=== PATIENT | female | born 1980 | race Caucasian/White ===

== ENCOUNTER 2020-01-29 04:56 | Day surgery (SDC) | payer OTHER ==
--- OUTSIDE RECORDS SUMMARY | 2020-01-23 08:02 | XMS ---
:1980 [facility] Organization [facility] Care Team Providers Name Role Phone Menla, Eric Unavailable Unavailable Menla, Eric Unavailable Unavailable Menla, Eric Unavailable Unavailable Menla, Eric Unavailable Unavailable Menla, Eric Unavailable Unavailable Menla, Eric Unavailable Unavailable Amarga, Rebecca Unavailable Unavailable Amarga, Rebecca Unavailable Unavailable ED STAFF PHYSICIAN, STAFF Unavailable Unavailable ED STAFF PHYSICIAN Unavailable Unavailable Coon, Trinidad Unavailable Unavailable Coon, Trinidad Unavailable Unavailable Coon, Trinidad Unavailable Unavailable Coon, Trinidad Unavailable Unavailable Coon, Trinidad Unavailable Unavailable Coon, Trinidad Unavailable Unavailable AurCarlos sam DPM Unavailable Unavailable AurJuan sam DPM Unavailable Unavailable AuriccJuan smith DPM Unavailable Unavailable MENLA ERIC Unavailable Unavailable PRZETON WELLSUTA Unavailable Unavailable VARGAS Unavailable Unavailable Re-disclosure Warning The records that you are about to access may contain information from federally- assisted alcohol or drug abuse programs. If such information is present, then the following federally mandated warning applies: This information has been disclosed to you from records protected by federal confidentiality rules (42 CFR part 2). The federal rules prohibit you from making any further disclosure of this information unless further disclosure is expressly permitted by the written consent of the person to whom it pertains or as otherwise permitted by 42 CFR part 2. A general authorization for the release of medical or other information is NOT sufficient for this purpose. The Federal rules restrict any use of the information to criminally investigate or prosecute any alcohol or drug abuse patient.The records that you are about to access may contain highly sensitive health information, the redisclosure of which is protected by Article 27-F of the [facility] Public Health law. If you continue you may haveaccess to information: Regarding HIV / AIDS; Provided by facilities licensed or operated by the [facility] Office of Mental Health; or Provided by the [facility] Office for People With Developmental Disabilities. If such information is present, then the following [facility] mandated warning applies: This information has been disclosed to you from confidential records which are protected by state law. State law prohibits you from making any further disclosure of this information without the specific written consent of the person to whom it pertains, or as otherwise permitted by law. Any unauthorized further disclosure in violation of state law may result in a fine or custodial sentence or both. A general authorization for the release of medical or other information is NOT sufficient authorization for further disclosure. Encounters Encounter Providers Location Date Indications Data Source(s ) Attender: [facility] 12/05/2019 [facility] (S aint Menla 03:44:00 PM [facility] Medic al EDT - Center) 12/05/2019 03:44:00 PM EDT Attender: Rebecca [facility] 10/04/2019 NEXTGEN (Sa int Amarga 10:41:00 AM [facility] Medic al EDT - Center) 10/04/2019 10:41:00 AM EDT Outpatient Attender: LEATHA Burnham 09/14/2019 [facility] MOLINAAAdmitter: 04:13:00 PM Medical C enter LEATHA EDT MEJIAReferrer: LEATHA VARGAS OutpatientOFFICE/O Attender: Eric [address] [place] [address] 09/14/2019 NE XTGEN ([facility] VISIT, Menla 04:13:00 PM [facility] Medical EST EDT - Center) 09/14/2019 04:13:00 PM EDT Outpatient 09/14/2019 [facility] 10:28:00 AM Medical Cente r EDT Outpatient 09/14/2019 [facility] 12:00:00 AM Medical Cente r EDT Attender: Carlos [facility] 09/11/2019 NEXTGEN (S aint Auricchio DPM 10:27:00 AM [facility] EDT - [place]) 09/11/2019 10:27:00 AM EDT Emergency Attender: ED H 09/06/2019 [facility] STAFF 07:16:00 PM Medical Liliana jiménez PHYSICIANAttender EDT - : STAFF ED STAFF 09/06/2019 PHYSICIANAdmitter 10:49:00 PM : ED STAFF EDT PHYSICIAN Patient discharged. Outpatient Attender: LEATHA Burnham [facility]06[facility]2019 [facility] LE[facility] 10:12:00 AM [facility] OutpatientOFFICE/OUT Attender: Eric [facility]:12[facility]00 AM EDT ( [facility] 09/06/2019 [facility] 10:12:00 AM T [facility]) Outpatient 09/06/2019 [facility] 10:10:00 AM EDT [facility] Outpatient 09/06/2019 [facility] 12:00:00 AM EDT [facility] Attender: Trinidad Costello 08/10/2019 SALTY SIDDIQI [facility] 11:06:00 AM EDT ([facility] 08/10/2019 [facility] 11:06:00 AM EDT [facility]) Outpatient 07/20/2019 [facility] 04:09:00 PM EDT [facility] Outpatient Attender: LEATHA Burnham 07/20/2019 [facility]il[facility]: LEATHA 09:02:00 AM EDT [facility] OutpatientOFFICE/OUT Attender: [facility]20[facility] 09:02:00 AM EDT ( [facility] 07/20/2019 [facility] 09:02:00 AM [facility]) Outpatient 07/20/2019 [facility] 12:00:00 AM EDT [facility] Outpatient Attender: ERIC Burnham 07/06/2019 Che LIdmitter: ERIC 03:39:00 PM EDT [facility] DENA Monroyferrer: Medic alma REYES [place] OutpatientWell Attender: [facility] 07/06/2019 NEXTGEN Visit, 03:39:00 PM EDT ([facility] Est,18-39years - 07/06/2019 Brad s 03:39:00 PM [facility]) Outpatient 07/06/2019 [facility] 11:06:00 AM EDT [facility] Outpatient 07/06/2019 [facility] 12:00:00 AM EDT [facility] Outpatient Attender: ERIC FERNANDES 06/20/2019 Che LIdmitter: ERIC 11:13:00 AM [facility]ir[facility] Medic al [facility] [place] OutpatientOFFICE/OUT Attender: [facility]20[facility] 11:13:00 AM EDT ( [facility] 06/20/2019 [facility] 11:13:00 AM [facility]) Outpatient 06/20/2019 [facility] 11:11:00 AM EDT [facility] Outpatient 06/20/2019 [facility] 12:00:00 AM [facility] Outpatient Attender: LEATHA 05/17/2019 [facility] LEATHA 09:29:00 AM [facility] Nehemiahrer: LEATHA [facility] OutpatientOFFICE/OUT Attender: Eric [facility] 05/17/2019 [facility] PATIENT VISIT, EST 09:29:00 AM EST ( [facility] 05/17/2019 [facility] 09:29:00 AM [facility]) Outpatient 05/17/2019 [facility] 09:28:00 AM [facility] Outpatient 05/17/2019 [facility] 12:00:00 AM [facility] Attender: Eric [facility] 02/21/2019 NEXT GEN 09:37:00 AM EST ([facility] 02/21/2019 [facility] 09:37:00 AM [facility]) Attender: Eric Fernandes [facility] 12/16/2018 [facility] 02:36:00 PM EDT ([facility] 12/16/2018 [facility] 02:36:00 PM [facility]) Outpatient Attender: DHAVAL Burnham 11/17/2018 [facility] 09:22:00 AM EDT [facility] DANUTAAdmitter: [facility] DANUTAReferrer: ERIC REYES Immunizations Vaccine Date Status Description Data Source(s) New in 2011. IIV4 01/22/2019 completed Influenza, Injectable, NEXTGEN ([facility] 12:00:00 AM EDT Quadrivalent [facility]) Source: Other Provider Medications Medication Brand Start Product Dose Route Administrative Pharmacy anm Indications Reaction Description Data Name Date Form Instructions Instructions Source(s) Naproxen naprox ORAL active take 1 NEX TGEN 500 MG Oral en 500 2019 {tabl tablet by ([facility] Tablet mg 12:00: et} oral route 2 Hans eph[facility] naproxen tablet 00 AM times every M edical 500 mg EDT day with Center) tablet food gabapentin gabape ORAL active take 1 N EXTGEN 100 MG Oral ntin 2019 {caps capsule by ( [facility] Capsule 100 mg 12:00: ule} oral route 2 Beny gabapentin capsul 00 AM times every Medical 100 mg e EDT day Center) capsule Erythromyci erythr ORAL complet take 1 NEXTGEN n 500 MG omycin 2019 {tbl} ed tablet by (Sa int Oral Tablet 500 mg 12:00: oral rout e Beny erythromyci tablet 00 AM every 6 Me dical n 500 mg EDT hours Center) tablet Flonase flutic NASAL active fluticason e NEXTGEN Allergy asone 2019 {spra propionate (Rell nt Relief 50 propio 12:00: y} 0.05 Brad s mcg/actuati alesha 00 AM MG/ACTUAT Me dical on nasal 0.05 EDT Metered Dose [address]) spray,suspe MG/ACT Nasal [place] nsion UAT [Flonase] Metere d Dose Nasal [place] Loratadine lorata ORAL active take 1 N EXTGEN 10 MG Oral dine 2019 {tabl tablet by (Sa int Tablet 10 mg 12:00: et} oral route Raul phs loratadine tablet 00 AM every day M edical 10 mg EDT Center) tablet Loratadine lorata ORAL complet take 1 NEXTGEN 10 MG Oral dine 2018 {tbl} ed tablet by (Sa int Tablet 10 mg 12:00: oral route Raul phs loratadine tablet 00 AM every day M edical 10 mg EDT Center) tablet Ibuprofen ibupro ORAL complet take 1 N EXTGEN 600 MG Oral fen 2017 {tbl} ed tablet by (S aint Tablet 600 mg 12:00: oral route 3 [facility] ibuprofen tablet 00 AM times every Medical 600 mg EST day with Center) tablet food Erythromyci erythr .00 ORAL complet take 1 NEXTGEN n 500 MG omycin 2016 {tbl} ed tablet by (Sa int Oral Tablet 500 mg 12:00: oral rout e Beny erythromyci tablet 00 AM every 6 Me dical n 500 mg EST hours Center) tablet Insurance Providers Payer name Policy type Policy ID Covered Covered libertarian's Policy P kasie / Coverage libertarian ID relationship to Liu Inf ormation type liu HERBERT [id number] SP [id number] ESSENTIAL PLAN 1 2 O HERBERT O [id number] 01 [id number] 600 ESSENTIALS-CO MMERCIAL W [id number] Problems, Conditions, and Diagnoses Code Display Name Description Problem Type Effective Data Dates Source(s) Z71.82 Exercise counseling EXERCISE COUNSELING Diagnosis 020 [facility] 04:13:00 PM [facility] Z71.3 Dietary counseling DIETARY COUNSELING Diagnosis 0 [facility] and surveillance AND SURVEILLANCE 04:13:00 PM [facility] Z68.30 Body mass index BODY MASS INDEX Diagnosis 09/14/2019 Che t (BMI) 30.0-30.9, (BMI) 30.0-30.9, 04:13:00 PM [facility] adult ADULT [facility] M54.30 Sciatica, SCIATICA, Diagnosis 09/14/2019 unspecified side UNSPECIFIED SIDE 04:13:00 PM [facility] Y99.9 Unspecified external UNSPECIFIED EXTERNAL Diagnosis 09/05 cause status CAUSE STATUS 07:16:00 PM [facility] Y92.[address] U[address]IED [address] OR Diagnosis 09/05 not applicable NOT APPLICABLE 07:16:00 PM Jairon [facility] Y93.9 Activity, ACTIVITY, Diagnosis 09/06/2019 unspecified UNSPECIFIED 07:16:00 PM [facility] X58.XXXA Exposure to other EXPOSURE TO OTHER Diagnosis 09/06/2019 specified factors, SPECIFIED FACTORS, 07:16:00 PM [facility] initial encounter INITIAL ENCOUNTER EDT Medical Center M62.830 Muscle spasm of back MUSCLE SPASM OF BACK Diagnosis 09/05 [facility] 07:16:00 PM [facility] S39.012A Strain of muscle, STRAIN OF MUSCLE, Diagnosis 09/06/2019 fascia and tendon of FASCIA AND TENDON OF 07:16 :00 PM [facility] lower back, initial LOWER BACK, INIT EDT Medical encounter Center M54.9 Dorsalgia, DORSALGIA, Diagnosis 09/06/2019 unspecified UNSPECIFIED 07:16:00 PM [facility] J32.9 Chronic sinusitis, CHRONIC SINUSITIS, Diagnosis 0 [facility] unspecified UNSPECIFIED 09:02:00 AM [facility] Z11.4 Encounter for ENCOUNTER FOR Diagnosis 07/06/2019 screening for human SCREENING FOR HUMAN 03:39:0 0 PM [facility] immunodeficiency IMMUNODEFICIENCY EDT Or dical virus [HIV] VIRUS Center Z51.89 Encounter for other ENCOUNTER FOR OTHER Diagnosis specified aftercare SPECIFIED AFTERCARE 03:39:0 0 PM [facility] Z00.00 Encounter for ENCNTR FOR GENERAL Diagnosis 07/06/2019 Rell nt general adult ADULT MEDICAL EXAM 03:39:00 PM [facility] medical examination W/O ABNORMAL EDT Med ical without abnormal FINDINGS Center findings M79.675 Pain in left toe(s) PAIN IN LEFT TOE(S) Diagnosis 020 [facility] 11:13:00 AM [facility] Z68.29 Body mass index BODY MASS INDEX Diagnosis 05/17/2019 Che t (BMI) 29.0-29.9, (BMI) 29.0-29.9, 09:29:00 AM [facility] adult ADULT [facility] G56.02 Carpal tunnel CARPAL TUNNEL Diagnosis 05/17/2019 syndrome, left upper SYNDROME, LEFT UPPER 09:29 :00 AM [facility] limb LIMB [facility] Surgeries/Procedures Procedure Description Date Indications Data Source(s) OFFICE/OUTPATIENT VISIT, 09/14/2019 NEX TGEN ([facility] EST 12:00:00 AM EDT [facility] - 09/14/2019 Center) 12:00:00 AM EDT OFFICE/OUTPATIENT VISIT, 09/06/2019 NEX TGEN ([facility] EST 12:00:00 AM EDT [facility] - 09/06/2019 Center) 12:00:00 AM EDT OFFICE/OUTPATIENT VISIT, 07/20/2019 NEX TGEN ([facility] EST 12:00:00 AM EDT [facility] - 07/20/2019 Center) 12:00:00 AM EDT [facility] Est,18-39years 12:00:00 AM EDT [facility] dical - 07/06/2019 [place]) 12:00:00 AM EDT ROUTINE VENIPUNCTURE 07/06/2019 NEXTGEN ([facility] 12:00:00 AM EDT [facility] - 07/06/2019 [place]) 12:00:00 AM EDT OFFICE/OUTPATIENT VISIT, 06/20/2019 NEX TGEN ([facility] EST 12:00:00 AM EDT [facility] - 06/20/2019 [place]) 12:00:00 AM EDT OFFICE/OUTPATIENT VISIT, 05/17/2019 NEX TGEN ([facility] EST 12:00:00 AM EST [facility] - 05/17/2019 [place]) 12:00:00 AM EST Results ID Date Data Source Liver 07/06/2019 05:20:00 PM EDT [facility] Profile.[id number] Name Value Range Interpretation Description Data Sup porting Code Source(s) Document(s ) Aspartate 14-36 <content [facility] aminotransferase styleCode="Bold"> Jairon hs [Enzymatic Aspartate Medical activity/volume] Aminotransferase Center in Serum or Plasma (AST) </content>23 IU/L<content styleCode="Italic s"> (14-36 IU/L)</content> Alkaline 38-126 <content [facility] phosphatase styleCode="Bold"> Beny [Enzymatic Alkaline Medical activity/volume] Phosphatase (ALP) Cente r in Serum or Plasma </content>67 IU/L<content styleCode="Italic s"> (38-126 IU/L)</content> Alanine 7-30 <content [facility] aminotransferase styleCode="Bold"> Jairon hs [Enzymatic Alanine Medical activity/volume] Aminotransferase Center in Serum or Plasma (ALT) </content>17 IU/L<content styleCode="Italic s"> (7-30 IU/L)</content> Albumin 3.5-5.0 <content [facility] [Mass/volume] in styleCode="Bold"> Jairon hs Serum or Plasma Albumin Medical </content>4.5 Center G/DL<content styleCode="Italic s"> (3.5-5.0 G/DL)</content> Bilirubin.total 0.2-1.3 Below low <content [facility] [Mass/volume] in normal styleCode="Bold"> Jairon hs Serum or Plasma Bilirubin Total Medical </content>< 0.2 Center MG/DL L<content styleCode="Italic s"> (0.2-1.3 MG/DL)</content> ID Date Data Source LIPID.[id number] 07/06/2019 05:20:00 PM EDT [facility] Name Value Range Interpretation Description Data Sup porting Code Source(s) Document(s ) UNK < 100 <content [facility] styleCode="Du Beny d">LDL-Cholest [facility] </content>90 MG/DL<content styleCode="Sofia lics"> (< 100 MG/DL)</conten t> Triglyceride < 150 Above high normal <content [facility] [Mass/volume] in styleCode="Du Beny Serum or Plasma d">Triglycerid [facility] Center </content>151 MG/DL H<content styleCode="Sofia lics"> (< 150 MG/DL)</conten t> UNK > 60 Below low normal <content [facility] styleCode="Du Beny d">HDL- Medical Cholesterol Center </content>41 MG/DL L<content styleCode="Sofia lics"> (> 60 MG/DL)</conten t> Cholesterol -<200 <content [facility] [Mass/volume] in styleCode="Du Beny Serum or Plasma d">Cholesterol Medical </content>161 Center MG/DL<content styleCode="Sofia lics"> (-<200 MG/DL)</conten t> ID Date Data Source Hormones.[id number] 07/06/2019 05:20:00 PM EDT Che [facility] Name Value Range Interpretation Description Data Sup porting Code Source(s) Document(s ) Thyrotropin 0.465-4. <content [facility] [Units/volume] 68 styleCode="Du Beny in Serum or d">Thyroid Medical Plasma by Stimulating Center Detection Hormone limit <= 0.05 </content>1.05 mIU/L MIU/L<content styleCode="Sofia lics"> (0.465-4.68 MIU/L)</conten t> ID Date Data Source HematologyRou.[id number] 07/06/2019 05:20:00 PM EDT [facility] 0400 Name Value Range Interpretation Description Data Sup porting Code Source(s) Document(s ) Leukocytes 4.4-11.0 <content [facility] [#/volume] in styleCode="Bold Beny Blood by ">White Blood Medical Automated count Cell Count Center </content>8.92 KCUMM<content styleCode="Ital ics"> (4.4-11.0 KCUMM)</content > Hematocrit 36.0-46. <content [facility] [Volume 0 styleCode="Bold Beny Fraction] of ">Hematocrit Medical Blood by </content>39.7 Center Automated count %<content styleCode="Ital ics"> (36.0-46.0 %)</content> Erythrocyte mean 80.0-100 <content [facility] corpuscular .0 styleCode="Bold Beny volume [Entitic ">Mean Medical volume] by Corpuscular Center Automated count Volume </content>95.2 FL<content styleCode="Ital ics"> (80.0-100.0 FL)</content> Erythrocytes 4.0-5.1 <content [facility] [#/volume] in styleCode="Bold Beny Blood by ">Red Blood Medical Automated count Cell Count Center </content>4.17 MCUMM<content styleCode="Ital ics"> (4.0-5.1 MCUMM)</content > Hemoglobin 12.3-16. <content [facility] [Mass/volume] in 0 styleCode="Bold Beny Blood ">Hemoglobin Medical </content>13.2 Center G/DL<content styleCode="Ital ics"> (12.3-16.0 G/DL)</content> Erythrocyte mean 32.0-37. <content [facility] corpuscular 0 styleCode="Bold Beny hemoglobin ">Mean Corpus. Medical concentration Hgb Center [Mass/volume] by Concentration Automated count (MCHC) </content>33.2 G/DL<content styleCode="Ital ics"> (32.0-37.0 G/DL)</content> Platelet mean 8.0-11.0 Above high <content [facility] volume [Entitic normal styleCode="Bold Beny volume] in Blood ">Mean Platelet Medical by Automated Volume Center count </content>13.0 FL H<content styleCode="Ital ics"> (8.0-11.0 FL)</content> Platelets 130-400 <content [facility] [#/volume] in styleCode="Bold Beny Blood by ">Platelet Medical Automated count Count Center </content>216 KCUMM<content styleCode="Ital ics"> (130-400 KCUMM)</content > Erythrocyte mean 26.0-34. <content [facility] corpuscular 0 styleCode="Bold Beny hemoglobin ">Mean Medical [Entitic mass] Corposcular Center by Automated Hemoglobin count </content>31.7 PG<content styleCode="Ital ics"> (26.0-34.0 PG)</content> Erythrocyte 11.5-14. <content [facility] distribution 5 styleCode="Bold Beny width [Ratio] by ">Red Cell Medical Automated count Distribution Center Width </content>12.2 %<content styleCode="Ital ics"> (11.5-14.5 %)</content> UNK 1.6-4.9 Above high <content [facility] normal styleCode="Bold Beny ">Immature Medical Platelet Center Fraction </content>13.8 % H<content styleCode="Ital ics"> (1.6-4.9 %)</content> UNK 0.0 <content [facility] styleCode="Bold Beny ">Nucleated Red Medical Blood Cell Center Count </content>0.00 KCUMM<content styleCode="Ital ics"> (0.0 KCUMM)</content > UNK 0 <content [facility] styleCode="Bold Beny ">Nucleated Red Medical Blood Cell Center </content>0.0 /100<content styleCode="Ital ics"> (0 /100)</content> ID Date Data Source GFR(Creatinine).[id number] 07/06/2019 05:20:00 PM EDT [facility] 0-0400 Name Value Range Interpretation Code Description Data Perlita rce(s) Supporting Document(s ) UNK > 60 <content [facility] styleCode="Bold"> Medical Cent er EGFR </content>86 GFR<content styleCode="Italic s"> (> 60 GFR)</content> ID Date Data Source CHMROUTINECCDA.[id number] 07/06/2019 05:20:00 PM EDT [facility] -0400 Name Value Range Interpretation Description Data Sup porting Code Source(s) Document(s ) UNK >= 1.0 <content [facility] styleCode="Bold Medical ">AG Ratio Center </content>1.4 <content styleCode="Ital ics"> (>= 1.0 )</content> UNK 2.3-3.5 <content [facility] styleCode="Bold Medical ">Globulin Center </content>3.2 G/DL<content styleCode="Ital ics"> (2.3-3.5 G/DL)</content> Protein 6.3-8.2 <content [facility] [Mass/volum styleCode="Bold Medical e] in Serum ">Total Protein Center or Plasma </content>7.7 G/DL<content styleCode="Ital ics"> (6.3-8.2 G/DL)</content> UNK 4.2-5.8 <content [facility] styleCode="Bold Medical ">Hemoglobin Center A1C </content>5.2 %<content styleCode="Ital ics"> (4.2-5.8 %)</content> ID Date Data Source [id number] 07/06/2019 05:20:00 PM EDT [facility] Name Value Range Interpretation Description Data Sup porting Code Source(s) Document(s ) Sodium 137-145 <content [facility] [Moles/volume] in styleCode="Bold"> Raul phs Serum or Plasma Sodium Medical </content>138 Center MEQ/L<content styleCode="Italic s"> (137-145 MEQ/L)</content> Potassium 3.5-5.3 <content [facility] [Moles/volume] in styleCode="Bold"> Raul phs Serum or Plasma Potassium Medical </content>3.9 Center MEQ/L<content styleCode="Italic s"> (3.5-5.3 MEQ/L)</content> Chloride 98-107 <content [facility] [Moles/volume] in styleCode="Bold"> Raul phs Serum or Plasma Chloride Medical </content>102 Center MEQ/L<content styleCode="Italic s"> (98-107 MEQ/L)</content> Carbon dioxide, 22-30 <content [facility] total styleCode="Bold"> Beny [Moles/volume] in Carbon Dioxide Medical Serum or Plasma </content>26 Center MEQ/L<content styleCode="Italic s"> (22-30 MEQ/L)</content> UNK 7-17 <content [facility] styleCode="Bold"> Beny BUN </content>15 Medical MG/DL<content Center styleCode="Italic s"> (7-17 MG/DL)</content> Calcium 8.4-10. <content [facility] [Mass/volume] in 2 styleCode="Bold"> Jairon hs Serum or Plasma Calcium Medical </content>9.8 Center MG/DL<content styleCode="Italic s"> (8.4-10.2 MG/DL)</content> UNK > 60 <content [facility] styleCode="Bold"> Beny EGFR </content>86 Medical GFR<content Center styleCode="Italic s"> (> 60 GFR)</content> Glucose 74-106 <content [facility] [Mass/volume] in styleCode="Bold"> Jairon hs Serum or Plasma Glucose Medical </content>106 Center MG/DL<content styleCode="Italic s"> (74-106 MG/DL)</content> Aspartate 14-36 <content [facility] aminotransferase styleCode="Bold"> Jairon hs [Enzymatic Aspartate Medical activity/volume] Aminotransferase Center in Serum or Plasma (AST) </content>23 IU/L<content styleCode="Italic s"> (14-36 IU/L)</content> Creatinine 0.5-1.3 <content [facility] [Mass/volume] in styleCode="Bold"> Jairon hs Serum or Plasma Creatinine Medical </content>0.8 Center MG/DL<content styleCode="Italic s"> (0.5-1.3 MG/DL)</content> Alanine 7-30 <content [facility] aminotransferase styleCode="Bold"> Jairon hs [Enzymatic Alanine Medical activity/volume] Aminotransferase Center in Serum or Plasma (ALT) </content>17 IU/L<content styleCode="Italic s"> (7-30 IU/L)</content> Alkaline 38-126 <content [facility] phosphatase styleCode="Bold"> [facility] [Enzymatic Alkaline Medical activity/volume] Phosphatase (ALP) Cente r in Serum or Plasma </content>67 IU/L<content styleCode="Italic s"> (38-126 IU/L)</content> Albumin 3.5-5.0 <content [facility] [Mass/volume] in styleCode="Bold"> Jairon hs Serum or Plasma Albumin Medical </content>4.5 Center G/DL<content styleCode="Italic s"> (3.5-5.0 G/DL)</content> Bilirubin.total 0.2-1.3 Below low <content Saint [Mass/volume] in normal styleCode="Bold"> Jairon hs Serum or Plasma Bilirubin Total Medical </content>< 0.2 Center MG/DL L<content styleCode="Italic s"> (0.2-1.3 MG/DL)</content> Procedure Social History Code Duration Value Status Description Data Source(s ) Caffeine Use 10/04/2019 completed coffee, 3 cups NEXTGEN ([facility] Details 12:00:00 AM EDT [facility]) Smoking 10/04/2019 Unknown if completed Unknown if ever NEXTGEN ( [facility] 12:00:00 AM EDT ever smoked smoked [facility]) 09/14/2019 Current completed Current NEXTGEN ([facility] 12:00:00 AM EDT non-smoker non-smoker [facility]) Smoking 09/06/2019 Denies Ever completed Denies Ever [place] [facility] 07:[facility]:00 PM EDT Smoked Smoked Medical C enter Smoking 09/06/2019 Denies Ever completed Denies Ever [facility] 07:24:00 PM EDT Smoked Smoked Medical C enter Vital Signs ID Date Data Source UNK Name Value Range Interpretation Code Description Data Source(s) Oxygen saturation 100 % 100 % NEXTGEN ([facility] in Arterial blood [facility] by Pulse oximetry Center) Body mass index 30.47 kg/m2 Overweight 30.47 kg/m2 NEXTGEN ([facility] (BMI) [Ratio] [facility]) Respiratory rate 20 /min 20 /min [facility] ([facility]) Body temperature 37.06 Jennifer 37.06 Jennifer [facility] ([facility]) Heart rate 72 /min 72 /min [facility] ([facility]) Diastolic blood 64 mm[Hg] 64 mm[Hg] [facility] ( [facility] pressure [facility]) Systolic blood 102 mm[Hg] 102 mm[Hg] [facility] (S aint [facility]) Body weight 70.760 kg 70.760 kg [facility] ([facility]) Body height 152.40 cm 152.40 cm [facility] ([facility]) Body weight 67.224551 kg 67.704633 kg [facility] Body temperature 36.520089 36.299789 Jennifer [facility] Respiratory rate 18 /min 18 /min [facility] Oxygen saturation 98 % 98 % [facility] Arterial blood [facility] by Pulse oximetry Heart rate 89 /min 89 /min [facility] Body height 151.944233 151.464819 cm [facility] Diastolic blood 76 mm[Hg] 76 mm[Hg] [facility] pressure [facility] Systolic blood 139 mm[Hg] 139 mm[Hg] [facility] Center Body mass index 28.9 kg/m2 28.9 kg/m2 [facility] (BMI) [Ratio] [facility] [address] Oxygen saturation 98 % 98 % [facility] ([facility] in Arterial blood [facility] by Pulse oximetry Center) Body mass index 30.66 kg/m2 Overweight 30.66 kg/m2 NEXTGEN ([facility] (BMI) [Ratio] [facility]) Respiratory rate 18 /min 18 /min [facility]EXTGEN ([facility]) Body temperature 36.72 Jennifer 36.72 Jennifer NEXTGEN ([facility]) Heart rate 78 /min 78 /min [facility] ([facility]) Diastolic blood 76 mm[Hg] 76 mm[Hg] [facility] Systolic blood 118 mm[Hg] 118 mm[Hg] [facility] Body weight 71.214 kg 71.214 kg [facility]) Body height 152.40 cm 152.40 cm [facility] ([facility]) Oxygen saturation 98 % 98 % NEXTGEN ([facility] in Arterial blood [facility] by Pulse oximetry Center) Body mass index 30.08 kg/m2 Overweight 30.08 kg/m2 NEXTGEN ([facility] (BMI) [Ratio] [facility]) Respiratory rate 20 /min 20 /min [facility]) Body temperature 36.39 Jennifer 36.39 Jennifer [facility]) Heart rate 82 /min 82 /min [facility] ([facility]) Diastolic blood 56 mm[Hg] 56 mm[Hg] [facility] ( [facility]) Systolic blood 107 mm[Hg] 107 mm[Hg] [facility] Body weight 69.853 kg 69.853 kg [facility]) Body height 152.40 cm 152.40 cm [facility] ([facility]) Oxygen saturation 98 % 98 % NEXTGEN ([facility] in Arterial [facility] by Pulse oximetry Center) Body mass index 30.47 kg/m2 Overweight 30.47 kg/m2 NEXTGEN ([facility] (BMI) [Ratio] [facility]) Respiratory rate 17 /min 17 /min [facility]) Body temperature 37.28 Jennifer 37.28 Jennifer [facility] ([facility]) Heart rate 83 /min 83 /min [facility] ([facility]) Diastolic blood 62 mm[Hg] 62 mm[Hg] NEXTGEN ( [facility]) Systolic blood 103 mm[Hg] 103 mm[Hg] NEXTGEN (S nt [facility]) Body weight 70.760 kg 70.760 [facility]) Body height 152.40 cm 152.40 cm [facility]) Oxygen saturation 98 % 98 % NEXTGEN ([facility] in Arterial blood [facility] by Pulse oximetry Center) Body mass index 30.27 kg/m2 Overweight 30.27 kg/m2 NEXTGEN ([facility] (BMI) [Ratio] [facility]) Respiratory rate 18 /min 18 /min [facility]) Body temperature 37.11 Jennifer 37.11 Jennifer [facility]) Heart rate 81 /min 81 /min [facility] ([facility]) Diastolic blood 69 mm[Hg] 69 mm[Hg] NEXTGEN ( [facility]) Systolic blood 114 mm[Hg] 114 mm[Hg] [facility] (S nt [facility]) Body weight 70.307 kg 70.307 kg [facility] ([facility]) Body height 152.40 cm 152.40 cm [facility] ([facility]) Oxygen saturation 96 % 96 % NEXTGEN ([facility] in Arterial [facility] by Pulse oximetry Center) Body mass index 29.65 kg/m2 Overweight 29.65 kg/m2 NEXTGEN ([facility] (BMI) [Ratio] [facility]) Respiratory rate 18 /min 18 /min [facility] ([facility]) Body temperature 36.28 Jennifer 36.28 Jennifer [facility]) Heart rate 89 /min 89 /min [facility]) Diastolic blood 69 mm[Hg] 69 mm[Hg] NEXTGEN ( [facility]) Systolic blood 133 mm[Hg] 133 mm[Hg] NEXTGEN (S nt [facility]) Body weight 68.855 kg 68.855 kg [facility] ([facility]) Body height 152.40 cm 152.40 cm [facility] ([facility]) Patient Treatment Plan of Care Planned Activity Planned Date Details Description Data Source (s) gabapentin 100 MG Oral 09/06/2019 12:00:00 NEXTGEN ([facility] Capsule [facility]) Naproxen 500 MG Oral 09/06/2019 12:00:00 [facility] ([facility]) Flonase Allergy Relief 50 07/20/2019 12:00:00 [facility] ([facility]/actuation nasal [facility] spray,suspension Center) Erythromycin 500 MG Oral 07/20/2019 12:00:00 [facility] ([facility]) Loratadine 10 MG Oral 07/06/2019 12:00:00 [facility] ([facility]) Loratadine 10 MG Oral 06/29/2018 12:00:00 [facility] ([facility]) Ibuprofen 600 MG Oral 04/27/2017 12:00:00 [facility] ([facility]) Erythromycin 500 MG Oral 06/09/2016 12:00:00 [facility] ([facility])
[~2020-01-29 04:56] MED LIST: BUPIVACAINE HCL/PF 0.5% (5MG/ML) 10 ML VIAL IJ ONE
--- OUTSIDE RECORDS SUMMARY | 2020-01-29 05:00 | XMS ---
:1980 Author Organization [facility] Care Team Providers Name Role Phone PALLI VINO K Unavailable Unavailable Menla, Eric Unavailable Unavailable Menla, Eric Unavailable Unavailable Menla, Eric Unavailable Unavailable Menla, Eric Unavailable Unavailable Menla, Eric Unavailable Unavailable Menla, Eric Unavailable Unavailable Amarga, Rebecca Unavailable Unavailable Amarga, Rebecca Unavailable Unavailable ED STAFF PHYSICIAN, STAFF Unavailable Unavailable MENLA, ERIC Unavailable Unavailable Coon, Trinidad Unavailable Unavailable Coon, Trinidad Unavailable Unavailable Coon, Trinidad Unavailable Unavailable Coon, Trinidad Unavailable Unavailable Coon, Trinidad Unavailable Unavailable Coon, Trinidad Unavailable Unavailable AuriccCarlos smith DPM Unavailable Unavailable AuricchiJuan ray DPM Unavailable Unavailable AuricchiJuan ray DPM Unavailable Unavailable TEMO PUENTES Unavailable Unavailable VARGAS Unavailable Unavailable Re-disclosure Warning [...] is protected by Article 27-F of the [facility] Public Health law. If you continue you may haveaccess to information: Regarding HIV / AIDS; Provided by facilities licensed or operated by the [facility] Office of Mental Health; or Provided by the [facility] Office for People With Developmental Disabilities. If such information is present, then the following [facility] mandated warning applies: This information has been [...] law may result in a fine or correction sentence or both. A general authorization for the release of medical or other information is NOT sufficient authorization for further disclosure. Encounters Encounter Providers Location Date Indications Data Source(s ) Attender: [facility] 12/05/2019 NEXTGEN (S aint Menla 03:44:00 PM [facility] Medic al EDT - Center) 12/05/2019 03:44:00 PM EDT Attender: Rebecca [facility] 10/04/2019 NEXTGEN (Sa int Amarga 10:41:00 AM [facility] Medic al EDT - Center) 10/04/2019 10:41:00 AM EDT Outpatient Attender: LEATHA Burnham 09/14/2019 [facility] MEJIAAdmitter: 04:13:00 PM Medical C enter LEATHA EDT MEJIAReferrer: LEATHA VARGAS OutpatientOFFICE/O Attender: Eric [address] [place] [address] 09/14/2019 NE XTGEN ([facility] VISIT, Menla 04:13:00 PM [facility] Medical EST EDT - Center) 09/14/2019 04:13:00 PM EDT Outpatient 09/14/2019 [facility] 10:28:00 AM Medical Cente r EDT Outpatient 09/14/2019 [facility] 12:00:00 AM Medical Cente r EDT Attender: Carlos [facility] 09/11/2019 NEXTGEN (S aint Auricchio DPM 10:27:00 AM [facility] EDT - [place]) 09/11/2019 10:27:00 AM EDT Emergency Attender: DOLLY Burnham 09/06/2019 [facility] Morgantender: 07:16:00 PM Medical Center STAFF ED STAFF EDT - PHYSICIANAdmitter 09/06/2019 : DOLLY Brown 10:49:00 PM EDT Patient discharged. Outpatient Attender: LEATHA Burnham [facility]06/2019 [facility] 10:12:00 AM [facility] OutpatientOFFICE/OUT Attender: [facility] 09/06/2019 [facility] PATIENT VISIT, EST 10:12:00 AM EDT ( [facility] 09/06/2019 [facility] 10:12:00 AM EDT [facility]) Outpatient 09/06/2019 [facility] 10:10:00 AM EDT [facility] Outpatient 09/06/2019 [facility] 12:00:00 AM EDT [facility] Attender: Trinidad Costello 08/10/2019 SALTY SIDDIQI [facility] 11:06:00 AM EDT ([facility] 08/10/2019 [facility] 11:06:00 AM EDT [facility]) Outpatient 07/20/2019 [facility] 04:09:00 PM EDT [facility] Outpatient Attender: LEATHA Burnham 07/20/2019 [facility] LEATHA 09:02:00 AM [facility] OutpatientOFFICE/OUT Attender: [facility]00 AM EDT ( [facility] 07/20/2019 [facility] 09:02:00 AM EDT [facility]) Outpatient 07/20/2019 [facility] 12:00:00 AM EDT [facility] Outpatient Attender: ERIC Burnham 07/06/2019 [facility] FERNANDESAdmitter: ERIC 03:39:00 PM EDT [facility] OutpatientWell Attender: [facility] 07/06/2019 NEXTGEN Visit, 03:39:00 PM EDT ([facility] Est,18-39years - 07/06/2019 Brad s 03:39:00 PM [facility]) Outpatient 07/06/2019 [facility] 11:06:00 AM EDT [facility] Outpatient 07/06/2019 [facility] 12:00:00 AM EDT [facility] Outpatient Attender: ERIC Burnham 06/20/2019 [facility] IANAdmitter: ERIC 11:13:00 AM EDT [facility] ERIC [facility] OutpatientOFFICE/OUT Attender: [facility] 06/20/2019 NEXTGEN PATIENT VISIT, EST 11:13:00 AM EDT ( [facility] 06/20/2019 [facility] 11:13:00 AM [facility]) Outpatient 06/20/2019 [facility] 11:11:00 AM EDT [facility] Outpatient 06/20/2019 [facility] 12:00:00 AM EDT [facility] Outpatient Attender: LEATHA Burnham 05/17/2019 [facility] LEATHA 09:29:00 AM [facility] OutpatientOFFICE/OUT Attender: [facility] 05/17/2019 [facility] PATIENT VISIT, EST 09:29:00 AM EST ( [facility] 05/17/2019 [facility] 09:29:00 AM [facility]) Outpatient 05/17/2019 [facility] 09:28:00 AM [facility] Outpatient 05/17/2019 [facility] 12:00:00 AM [facility] Attender: [facility] 02/21/2019 NEXT GEN 09:37:00 AM EST ([facility] 02/21/2019 [facility] 09:37:00 AM [facility]) Attender: Eric Fernandes [facility] ([facility] 12/16/2018 [facility] 02:36:00 PM [facility]) Outpatient Attender: DHAVAL Burnham 11/17/2018 [facility] 09:22:00 AM EDT [facility] DANUTAReferrer: ERIC FERNANDES Immunizations Vaccine Date Status Description Data Source(s) New in 2011. IIV4 01/22/2019 completed Influenza, Injectable, NEXTGEN ([facility] 12:00:00 AM EDT Quadrivalent [facility]) Source: Other Provider Medications Medication Brand Start Product Dose Route Administrative Pharm[facility] Indications Reaction Description Data Name Date Form [...] Tablet 500 mg 12:00: oral rout e [facility] erythromyci tablet 00 AM every 6 Me dical n 500 mg EDT hours Center) tablet Flonase flutic NASAL active fluticason e NEXTGEN Allergy asone 2019 {spra propionate (Rell nt Relief 50 propio 12:00: y} 0.05 Brad s mcg/actuati alesha 00 AM MG/ACTUAT Me dical on nasal 0.05 EDT Met[address] Dose [address]) spray,suspe MG/ACT Nasal [place] nsion UAT [Flonase] Metere d Dose Nasal [place] Loratadine lorata ORAL active take 1 N [...] 600 mg 12:00: oral route 3 J osephs ibuprofen tablet 00 AM times every Medical 600 mg EST day with Center) tablet food Erythromyci erythr .00 ORAL complet take 1 NEXTGEN n 500 MG omycin 2017 {tbl} ed tablet by (Sa int Oral Tablet 500 mg 12:00: oral rout vincent Swan erythromyci tablet 00 AM every 6 Me dical n 500 mg EST hours Center) tablet Insurance Providers Payer name Policy type Policy ID Covered Covered libertarian's Policy P kasie / Coverage libertarian ID relationship to Liu Inf ormation type liu HERBERT [id number] SP [id number] 600 ESSENTIAL PLAN 1 2 O HERBERT O [id number] 600 ESSENTIALS-CO MMERCIAL W [id number] 01 [id number] Problems, Conditions, and Diagnoses Code Display Name Description Problem Type Effective Data Dates Source(s) Z71.82 Exercise counseling EXERCISE COUNSELING Diagnosis 020 [facility] 04:13:00 PM [facility] Z71.3 Dietary counseling DIETARY COUNSELING Diagnosis 0 [facility] and surveillance AND SURVEILLANCE 04:13:00 PM [facility] Z68.30 Body mass index BODY MASS INDEX Diagnosis 09/14/2019 Che t (BMI) 30.0-30.9, (BMI) 30.0-30.9, 04:13:00 PM [facility] adult ADULT [facility] M54.30 Sciatica, SCIATICA, Diagnosis 09/14/2019 unspecified side UNSPECIFIED SIDE 04:13:00 PM [facility] Y99.9 Unspecified external UNSPECIFIED EXTERNAL Diagnosis 09/05 cause status CAUSE STATUS 07:16:00 PM [facility] Y92.[address] U[address]IFIED [address] OR Diagnosis 09/05 not applicable NOT APPLICABLE 07:16:00 PM [facility] Y93.9 Activity, ACTIVITY, Diagnosis 09/06/2019 unspecified UNSPECIFIED 07:16:00 PM [facility] X58.XXXA Exposure to other EXPOSURE TO OTHER Diagnosis 09/06/2019 specified factors, SPECIFIED FACTORS, 07:16:00 PM [facility] initial encounter INITIAL ENCOUNTER [facility] M62.830 Muscle spasm of back MUSCLE SPASM OF BACK Diagnosis 09/05 [facility] 07:16:00 PM [facility] S39.012A Strain of muscle, STRAIN OF MUSCLE, Diagnosis 09/06/2019 fascia and tendon of FASCIA AND TENDON OF 07:16 :00 PM [facility] lower back, initial LOWER BACK, INIT EDT Medical encounter Center M54.9 Dorsalgia, DORSALGIA, Diagnosis 09/06/2019 unspecified UNSPECIFIED 07:16:00 PM [facility] J32.9 Chronic sinusitis, CHRONIC SINUSITIS, Diagnosis 0 [facility] unspecified UNSPECIFIED 09:02:00 AM [facility] Z11.4 Encounter for ENCOUNTER FOR Diagnosis 07/06/2019 [facility] screening for human SCREENING FOR HUMAN 03:39:0 0 PM [facility] immunodeficiency IMMUNODEFICIENCY EDT Ne dical virus [HIV] VIRUS Center Z51.89 Encounter for other ENCOUNTER FOR OTHER Diagnosis specified aftercare SPECIFIED AFTERCARE 03:39:0 0 PM [facility] Z00.00 Encounter for ENCNTR FOR GENERAL Diagnosis 07/06/2019 [facility] adult ADULT MEDICAL EXAM 03:39:00 PM [facility] medical examination W/O ABNORMAL EDT Med ical without abnormal FINDINGS Center findings M79.675 Pain in left toe(s) PAIN IN LEFT TOE(S) Diagnosis 11:13:00 AM [facility] Z68.29 Body mass index BODY MASS INDEX Diagnosis 05/17/2019 Che t (BMI) 29.0-29.9, (BMI) 29.0-29.9, 09:29:00 AM [facility] adult ADULT [facility] G56.02 Carpal tunnel CARPAL TUNNEL Diagnosis 05/17/2019 syndrome, left upper SYNDROME, LEFT UPPER 09:29 :00 AM [facility] limb LIMB [facility] Surgeries/Procedures Procedure Description Date Indications Data Source(s) OFFICE/OUTPATIENT VISIT, 09/14/2019 NEX TGEN ([facility] EST 12:00:00 AM EDT [facility] - 09/14/2019 Center) 12:00:00 AM EDT OFFICE/OUTPATIENT VISIT, 09/06/2019 NEX TGEN ([facility] EST 12:00:00 AM EDT [facility] - 09/06/2019 Center) 12:00:00 AM EDT OFFICE/OUTPATIENT VISIT, 07/20/2019 NEX TGEN ([facility] EST 12:00:00 AM EDT [facility] - 07/20/2019 Center) 12:00:00 AM EDT Well Visit, 07/06/2019 NEXTGEN ([facility] Est,18-39years 12:00:00 AM EDT [facility] dical - 07/06/2019 Center) 12:00:00 AM EDT ROUTINE VENIPUNCTURE 07/06/2019 NEXTGEN ([facility] 12:00:00 AM EDT [facility] ena - 07/06/2019 Center) 12:00:00 AM EDT OFFICE/OUTPATIENT VISIT, 06/20/2019 NEX TGEN ([facility] EST 12:00:00 AM EDT [facility] - 06/20/2019 Center) 12:00:00 AM EDT OFFICE/OUTPATIENT VISIT, 05/17/2019 NEX TGEN ([facility] EST 12:00:00 AM EST [facility] - 05/17/2019 [place]) 12:00:00 AM EST Results ID Date Data Source [id number] 01/24/2020 06:50:00 PM EDT [facility] Name Value Range Interpretation Description Data Sup porting Code Source(s) Document(s ) SARS [facility] coronavirus 2 RNA This lab was ordered by [facility] and reported by [facility]. ID Date Data Source Liver 07/06/2019 05:20:00 PM EDT [facility] Profile.[id number] Name Value Range Interpretation Description Data Sup [...] styleCode="Italic s"> (38-126 IU/L)</content> Alanine 7-30 <content [facility] aminotransferase styleCode="Bold"> Jairon hs [Enzymatic Alanine Medical [...] s"> (0.2-1.3 MG/DL)</content> ID Date Data Source LIPID.[id number] 07/06/2019 05:20:00 PM EDT [facility] Center Name Value Range Interpretation Description Data Sup porting Code Source(s) Document(s ) UNK < 100 <content [facility] styleCode="Du Beny d">LDL-Cholest [facility] Center </content>90 MG/DL<content styleCode="Sofia lics"> (< 100 MG/DL)</conten t> Triglyceride < 150 Above high normal <content [facility] [Mass/volume] in styleCode="Du Beny Serum or Plasma d">Triglycerid [facility] Center </content>151 MG/DL H<content styleCode="Sofia lics"> (< 150 MG/DL)</conten t> UNK > 60 Below low normal <content [facility] styleCode="Du Beny d">HDL- Medical Cholesterol Center </content>41 MG/DL L<content styleCode="Sofia lics"> (> 60 MG/DL)</conten t> Cholesterol -<200 <content [facility] [Mass/volume] in styleCode="Du Beny Serum or Plasma d">Cholesterol Medical </content>161 Center MG/DL<content styleCode="Sofia lics"> (-<200 MG/DL)</conten t> ID Date Data Source Hormones.[id number] 07/06/2019 05:20:00 PM EDT Che t [facility] Name Value Range Interpretation Description Data Sup porting Code Source(s) Document(s ) Thyrotropin 0.465-4. <content [facility] [Units/volume] 68 styleCode="Du Beny in Serum or d">Thyroid Medical Plasma by Stimulating Center Detection Hormone limit <= 0.05 </content>1.05 mIU/L MIU/L<content styleCode="Sofia lics"> (0.465-4.68 MIU/L)</conten t> ID Date Data Source HematologyRou.[id number] 07/06/2019 05:20:00 PM EDT [facility] nt [facility] 0400 Name Value Range Interpretation Description Data [...] ics"> (0 /100)</content> ID Date Data Source GFR(Creatinine).[id number] 07/06/2019 05:20:00 PM EDT [facility] 0-0400 Name Value Range Interpretation Code Description Data Perlita rce(s) Supporting Document(s ) UNK > 60 <content [facility] styleCode="Bold"> Medical Cent er EGFR </content>86 GFR<content styleCode="Italic s"> (> 60 GFR)</content> ID Date Data Source MROUTINECCDA.[id number] 07/06/2019 05:20:00 PM EDT [facility] -0400 Name Value Range Interpretation Description Data Sup porting Code Source(s) Document(s ) UNK >= 1.0 <content [facility] styleCode="Bold Medical ">AG Ratio Center </content>1.4 <content styleCode="Ital ics"> (>= 1.0 )</content> UNK 2.3-3.5 <content [facility] styleCode="Bold Medical ">Globulin Center </content>3.2 G/DL<content styleCode="Ital ics"> (2.3-3.5 G/DL)</content> Protein 6.3-8.2 <content [facility] [Mass/volum styleCode="Bold Medical e] in Serum ">Total Protein Center or Plasma </content>7.7 G/DL<content styleCode="Ital ics"> (6.3-8.2 G/DL)</content> UNK 4.2-5.8 <content [facility] styleCode="Bold Medical ">Hemoglobin Center A1C </content>5.2 %<content styleCode="Ital ics"> (4.2-5.8 %)</content> ID Date Data Source [facility].[id number] 07/06/2019 05:20:00 PM EDT [facility] Name Value Range Interpretation Description Data Sup [...] IU/L)</content> Alkaline 38-126 <content [facility] phosphatase styleCode="Bold"> [facility] [Enzymatic Alkaline Medical activity/volume] Phosphatase (ALP) Cente [...] ([facility] Details 12:00:00 AM EDT [facility]) Smoking 10/04/2019 Unknown if completed Unknown if ever NEXTGEN ( [facility] 12:00:00 AM EDT ever smoked smoked [facility]) 09/14/2019 Current completed Current NEXTGEN ([facility] 12:00:00 AM EDT non-smoker non-smoker [facility]) Smoking 09/06/2019 Denies Ever completed Denies Ever [place] 07:54:00 PM EDT Smoked Smoked Medical C enter Smoking 09/06/2019 Denies Ever completed Denies Ever [place] 07:24:00 PM EDT Smoked Smoked Medical C enter Vital Signs ID Date Data Source UNK Name Value Range Interpretation Code Description Data Source(s) Oxygen saturation 100 % 100 % NEXTGEN ([facility] in Arterial blood [facility] by Pulse oximetry Center) Body mass index 30.47 kg/m2 Overweight 30.47 kg/m2 NEXTGEN ([facility] (BMI) [Ratio] [facility]) Respiratory rate 20 /min 20 /min [facility] (Health system) Body temperature 37.06 Jennifer 37.06 Jennifer [facility] (Health system) Heart rate 72 /min 72 /min [facility] (Health system) Diastolic blood 64 mm[Hg] 64 mm[Hg] [facility] ( [facility] pressure [facility]) Systolic blood 102 mm[Hg] 102 mm[Hg] [facility] (S aint [facility]) Body weight 70.760 kg 70.760 kg [facility] ([facility]) Body height 152.40 cm 152.40 cm [facility] Body weight 67.308016 kg 67.186564 kg [facility] Body temperature 36.943433 36.011760 Jennifer [facility] Respiratory rate 18 /min 18 /min [facility] Oxygen saturation 98 % 98 % [facility] in Arterial [facility] by Pulse oximetry Heart rate 89 /min 89 /min [facility] Body height 151.321770 151.299379 cm [facility] Diastolic blood 76 mm[Hg] 76 mm[Hg] [facility] Center Systolic blood 139 mm[Hg] 139 mm[Hg] [facility] Body mass index 28.9 kg/m2 28.9 kg/m2 [facility] (BMI) [Ratio] Medical [address] Oxygen saturation 98 % 98 % NEXTGEN ([facility] in Arterial [facility] by Pulse oximetry Center) Body mass index 30.66 kg/m2 Overweight 30.66 kg/m2 NEXTGEN ([facility] (BMI) [Ratio] [facility]) Respiratory rate 18 /min 18 /min [facility] (Health system) Body temperature 36.72 Jennifer 36.72 Jennifer [facility] Heart rate 78 /min 78 /min [facility] Diastolic blood 76 mm[Hg] 76 mm[Hg] [facility] ( [facility]) Systolic blood 118 mm[Hg] 118 mm[Hg] [facility] ([facility]) Body weight 71.214 kg 71.214 kg [facility] ([facility]) Body height 152.40 cm 152.40 cm [facility] ([facility]) Oxygen saturation 98 % 98 % NEXTGEN ([facility] in Arterial [facility] by Pulse oximetry Center) Body mass index 30.08 kg/m2 Overweight 30.08 kg/m2 NEXTGEN ([facility] (BMI) [Ratio] [facility]) Respiratory rate 20 /min 20 /min [facility] Body temperature 36.39 Jennifer 36.39 Jennifer [facility]) Heart rate 82 /min 82 /min [facility] (Health system) Diastolic blood 56 mm[Hg] 56 mm[Hg] NEXTGEN ( [facility]) Systolic blood 107 mm[Hg] 107 mm[Hg] [facility] ([facility]) Body weight 69.853 kg 69.853 kg [facility] ([facility]) Body height 152.40 cm 152.40 cm [facility] ([facility]) Oxygen saturation 98 % 98 % NEXTGEN ([facility] in Arterial [facility] by Pulse oximetry Center) Body mass index 30.47 kg/m2 Overweight 30.47 kg/m2 NEXTGEN ([facility] (BMI) [Ratio] [facility]) Respiratory rate 17 /min 17 /min [facility] (Health system) Body temperature 37.28 Jennifer 37.28 Jennifer [facility] (Health system) Heart rate 83 /min 83 /min [facility] (Health system) Diastolic blood 62 mm[Hg] 62 mm[Hg] NEXTGEN ( [facility]) Systolic blood 103 mm[Hg] 103 mm[Hg] NEXTGEN ([facility]) Body weight 70.760 kg 70.760 [facility]) Body height 152.40 cm 152.40 cm [facility] ([facility]) Oxygen saturation 98 % 98 % NEXTGEN ([facility] in Arterial blood [facility] by Pulse oximetry Center) Body mass index 30.27 kg/m2 Overweight 30.27 kg/m2 NEXTGEN ([facility] (BMI) [Ratio] [facility]) Respiratory rate 18 /min 18 /min [facility] (Health system) Body temperature 37.11 Jennifer 37.11 Jennifer [facility] Heart rate 81 /min 81 /min [facility] (Health system) Diastolic blood 69 mm[Hg] 69 mm[Hg] [facility] ( [facility]) Systolic blood 114 mm[Hg] 114 mm[Hg] [facility] ([facility]) Body weight 70.307 kg 70.307 kg [facility] ([facility]) Body height 152.40 cm 152.40 cm [facility] ([facility]) Oxygen saturation 96 % 96 % NEXTGEN ([facility] in Arterial [facility] by Pulse oximetry Center) Body mass index 29.65 kg/m2 Overweight 29.65 kg/m2 NEXTGEN ([facility] (BMI) [Ratio] [facility]) Respiratory rate 18 /min 18 /min [facility] (Health system) Body temperature 36.28 Jennifer 36.28 Jennifer [facility] Heart rate 89 /min 89 /min [facility] (Health system) Diastolic blood 69 mm[Hg] 69 mm[Hg] NEXTGEN ( [facility] pressure [facility]) Systolic blood 133 mm[Hg] 133 mm[Hg] NEXTGEN ([facility]) Body weight 68.855 kg 68.855 kg [facility]EXT[facility] ([facility]) Body height 152.40 cm 152.40 cm [facility]EXT[facility] ([facility]) Patient Treatment Plan of Care Planned Activity Planned Date Details Description Data Source (s) gabapentin 100 MG Oral 09/06/2019 12:00:00 NEXTGEN ([facility] Capsule [facility]) Naproxen 500 MG Oral 09/06/2019 12:00:00 [facility] ([facility]) Flonase Allergy Relief 50 07/20/2019 12:00:00 [facility]/actuation nasal [facility] spray,suspension Center) Erythromycin 500 MG Oral 07/20/2019 12:00:00 [facility] Loratadine 10 MG Oral 07/06/2019 12:00:00 NEXTGEN ([facility]) Loratadine 10 MG Oral 06/29/2018 12:00:00 [facility] Ibuprofen 600 MG Oral 04/27/2017 12:00:00 [facility] ([facility]) Erythromycin 500 MG Oral 06/09/2016 12:00:00 [facility] ([facility])
[2020-01-29 12:25] VITALS: BMI 27.6
[2020-01-29] MEDS ORDERED: fentaNYL CITRATE 250 MCG/5 ML VIAL ONE (13:37)
[2020-01-29] MEDS ORDERED: PROPOFOL 20 ML ONE ×2 (13:38)
[2020-01-29] MEDS ORDERED: MIDAZOLAM HCL 2 MG/2 ML SINGLE DOSE VIAL ONE (13:38)
[2020-01-29] MEDS ORDERED: ROCURONIUM BROMIDE 100 MG/10 ML VIAL ONE (13:38)
--- NOTE | 2020-01-29 13:48 | HP ---
Admitting History and Physical - Admission Chief Complaint: Desires Permanent Sterilization History of Present Illness: 39yo here for permanent sterilization, removal of ovarian cyst and IUD removal Has IUD in place, notes increased bleeding and pain. 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: No: Alzheimer's, CVA, Dementia, Migraine, Multiple Sclerosis, Peripheral Neuropathy, Parkinson's, Seizure, Syncope, TIA, Vertigo, Other Cardiovascular: No: AFIB, Aneurysm, Aortic Insufficiency, Aortic Stenosis, CAD, CHF, Deep Vein Thrombosis, HTN, Hyperlipdemia, UT, Mitral Insufficiency, Mitral Stenosis, Murmur, Pulmonary Hypertension, Other Pulmonary: No: Asthma, Bronchitis, Cancer, COPD, O2 Dependent, Pneumonia, Previously Intubated, Pulmonary Embolus, Pulmonary Fibrosis, Sleep Apnea, Other Gastrointestinal: No: Ascites, Cancer, Constipation, Crohn's Disease, Diverticulitis, Diverticulosis, Esophageal Varices, Gastritis, GERD, GI Bleed, Hemorrhoids, Hiatal Hernia, Inflamatory Bowel Disease, Irritable Bowel Disease, Pancreatitis, Peptic Ulcer Disease, Ulcerative Colitis, Other Hepatobiliary: No: Cirrhosis, Cholelithiasis, Cholecystitis, Choledo cholithiasis, Hepatitis A, Hepatitis B, Hepatitis C, Other Renal/: No: Renal Failure, Renal Inusuff, BPH, Cancer, Hematuria, Hemodialysis, Neurogenic Bladder, Renal Calculi, UTI, Other Reproductive: No: Ectopic , Endometriosis, Fibroids, PID, Polycystic Ovary Syndrome, Postmenopausal, Other ...LMP: 12/31/19 ...: No ...: 3 ...Para: 3 Heme/Onc: No: Anemia, B12 Deficiency, Bleeding Disorder, Cancer, Current Chemotherapy, Current Radiation Therapy, Hemochromatosis, Hypercoaguable State, Myeloproliferative Synd, Sickle Cell Disease, Sickle Cell Trait, Thrombocytopenia, Other Infectious Disease: No: AIDS, C-Diff, Herpes Zoster, HIV, MRSA, STD's, Tuberculosis, VREF, Other Musculoskeletal: No: Bursitis, Chronic low back pain, Hemiparesis, Hemiplegia, Osteoarthritis, Paraplegia, Other ENT: No: Allergic Rhinitis, Sinusitis, Other Endocrine: No: Hemal's Disease, Xenia's Disease, Diabetes Insipidus, Diabetes Mellitus, Hyperparathyroidism, Hyperthyroidism, Hypothyroidism, Osteopenia, SIADH, Other Dermatology: No: Basal Cell, Cellulitis, Eczema, Melanoma, Psoriasis, Squamous Cell, Other - Past Surgical History Past Surgical History: Yes: - Smoking History Smoking history: Never smoked Have you smoked in the past 12 months: No - Alcohol/Substance Use Hx Alcohol Use: No History of Substance Use: reports: None - Social History Usual Living Arrangement: Yes: With Spouse Do you think of yourself as: Straight/Heterosexual ADL: Independent History of Recent Travel: No Home Medications - Allergies Allergies/Adverse Reactions: Allergies Allergy/AdvReac Type Severity Reaction Status Date / Time Penicillins Allergy Intermediate Rash Verified 01/29/20 12:20 - Home Medications Home Medications: Ambulatory Orders NK [No Known Home Medication] 01/29/20 Review of Systems - Review of Systems Constitutional: reports: No Symptoms Cardiovascular: reports: No Symptoms Respiratory: reports: No Symptoms Gastrointestinal: reports: No Symptoms Physical Examination Constitutional: Yes: Well Nourished, No Distress, Calm Cardiovascular: Yes: WNL, Regular Rate and Rhythm Respiratory: Yes: WNL, Regular, CTA Bilaterally Gastrointestinal: Yes: WNL, Normal Bowel Sounds Imaging - Results Ultrasound: Report Reviewed Problem List - Problems (1) Sterilization Code(s): Z30.2 - ENCOUNTER FOR STERILIZATION (2) Ovarian cyst Code(s): N83.209 - UNSPECIFIED OVARIAN CYST, UNSPECIFIED SIDE Assessment/Plan 39yo here for sterilization NPO, IVFs Jordan SCDs/TEDs Consents signed, risks reviewed including bleeding, infection and injury to surrounding tissue/organs. All discussed in [place] with patient. Consents signed. Proceed to OR for removal of IUD, LSC b/l salpingectomy and ovarian cystectomy Sb Heller MD
[2020-01-29] MEDS ORDERED: ACETAMINOPHEN 325 MG TABLET (FP) PO PRN (15:17)
[2020-01-29] MEDS ORDERED: ONDANSETRON 4 MG/2 ML VIAL IVPUSH PRN (15:17)
[2020-01-29] MEDS ORDERED: oxyCODONE HCL 5 MG TABLET PO PRN (15:17)
[2020-01-29] MEDS ORDERED: BUPIVACAINE HCL/PF 0.5% (5MG/ML) 10 ML VIAL IJ ONE (15:18)
[2020-01-29] MEDS ORDERED: PHENYLEPHRINE HCL 10 MG/1 ML SINGLE DOSE VIAL ONE (15:23)
[2020-01-29] MEDS ORDERED: NEOSTIGMINE METHYLSULFATE 0.5 MG/ML - 10 ML MDV ONE (15:23)
[2020-01-29] MEDS ORDERED: LACTATED RINGERS SOLUTION 1,000 ML IV SCH (15:30)
--- NOTE | 2020-01-29 15:38 | OP ---
Operative Note - Note: Operative Date: 01/29/20 Pre-Operative Diagnosis: Desires Permanent Sterilization, Removal of IUD, L ovarian cyst Operation: Laparoscopic Bilateral Salpingectomy, Left Ovarian Cystectomy, Removal of IUD Findings: Small fibroid uterus (anteriorly, two small fibroids seen), normal fallopian tubes bilaterally, normal right ovary, left ovarian cyst noted Post-Operative Diagnosis: Same as Pre-op Surgeon: Cassandra Heller Pin Sorter And Bagger: Martínez Obrien Anesthesia: General Specimens Removed: Bilateral Fallopian tubes, Mirena IUD, L ovarian cyst Estimated Blood Loss (mls): 25 Drains, Volume Out (mls): 300 (clear urine) Fluid Volume Replaced (mls): 1,100 Operative Report Dictated: Yes
--- NOTE | 2020-01-29 15:45 | SURG ---
Surgery Police Specialist Note Police Specialist: Martínez Obrien PA-C Date of Service: 01/29/20 Diagnosis: Desires Permanent Sterilization, Removal of IUD, L ovarian cyst Procedure: Laparoscopic Bilateral Salpingectomy, Left Ovarian Cystectomy, Removal of IUD I was present for the entirety of the operative procedure. For further detail, please refer to operative report. Visit type - Case Type Case Type: Scheduled - Emergency Emergency Visit: No - New patient This patient is new to me today: Yes Date on this admission: 01/29/20 - Critical Care Critical Care patient: No
--- NOTE | 2020-01-29 16:10 | OP ---
DATE OF OPERATION: 01/29/2020 PREOPERATIVE DIAGNOSIS: Desires permanent sterilization, removal of intrauterine device, left ovarian cyst. POSTOPERATIVE DIAGNOSIS: Desires permanent sterilization, removal of intrauterine device, left ovarian cyst. PROCEDURE: Laparoscopic bilateral salpingectomy, left ovarian cystectomy, removal of intrauterine device. ANESTHESIA: General. SURGEON: Cassandra Heller MD BYPRODUCTS OPERATOR: DANIKA Bella IV FLUIDS: 1100 ESTIMATED BLOOD LOSS: 25 URINE OUTPUT: 300 mL of clear urine at the end of the procedure. FINDINGS: A small fibroid uterus anteriorly with 2 small fibroids seen, normal fallopian tubes bilaterally, normal right ovary, left ovarian cyst noted. COMPLICATIONS: None. CONDITION: Stable to recovery room. NATURE OF THE PROCEDURE: After the appropriate consents were signed, patient was taken to the operating room. General anesthesia was administered. She was placed in the dorsal lithotomy position. The abdomen and pelvis were prepped and draped in a normal sterile fashion. A timeout was performed confirming correct patient and procedure. A sterile Jordan catheter was inserted into the bladder. Speculum was inserted into the vagina with good visualization of the cervix and the IUD strings. IUD strings were then grasped with a ring forceps and gently removed. The entire IUD was removed without any missing pieces. Speculum was then removed. Attention was then paid to the abdomen where 0.25% Marcaine was injected into the umbilicus. A 5 mm vertical incision was made in the umbilicus and the 0-degree laparoscope was then inserted under direct visualization with confirmation of placement. The abdomen was then insufflated with gas. The patient was placed in Trendelenburg position. A left lower quadrant and right lower quadrant 5-mm port was also inserted under direct visualization. Prior to insertion of the ports both areas were injected with 0.25% Marcaine. Patient's abdomen was noted to have the above findings. The patient's left fallopian tube was grasped. The fimbriated edges were noted to be normal. Using subsequent bites of the LigaSure along the mesosalpinx and the broad ligament the left fallopian tube was then ligated and transected at its insertion to the uterus. The left fallopian tube was then removed through the patient's left lower quadrant port. Attention was then paid to the right fallopian tube which was also grasped, carried through to its fimbriated edges and noted to be normal. Patient's right fallopian tube in subsequent bites was ligated with the LigaSure device along the mesosalpinx and broad ligament until its insertion point at the uterus where it was transected. The right fallopian tube was then removed through the right lower quadrant port. Both bite sites on the left and right were inspected and noted to be hemostatic. The patient's left ovarian cyst was then inspected, noted to be a clear fluid cyst, however, large in nature. The ovary was then stabilized with the grasper and then incised with the LigaSure device. Clear yellow straw fluid was noted and subsequent circumferential bites around the cyst. The ovarian cyst was then freed from the ovary. The bite sites were then cauterized with the LigaSure device. The specimen was then removed in subsequent pieces through the left lower quadrant port. All bite sites were reexamined and noted to be hemostatic. Patient was then taken out of Trendelenburg position. The left lower quadrant and right lower quadrant ports were removed under direct visualization. The umbilical port was then removed. The incision sits were closed with a 3-0 Biosyn. Appropriate bandages were placed. Sterile Jordan catheter was removed. All sponge, lap and needle counts were correct x3. The patient did not receive any antibiotics. She was taken from the operating room to the recovery area in stable condition. MD STACY DUQUE/[id number] MTDD
[2020-01-29 18:00] VITALS: TEMP 98
[2020-01-29] MEDS ORDERED: ONDANSETRON 4 MG/2 ML VIAL ONE (18:04)
[2020-01-29 18:35] VITALS: BP 97/52; PULSE 84
--- NOTE | 2020-02-01 15:55 | PATH ---
Surgical Pathology Report Patient Name: MONET FAROOQ [facility]. Rec. #: [id number] /Age/Gender: 1980 (Age: 39) / F Account: [id number] Location: [facility] SURGICAL Taken: 01/29/2020 Received: 01/30/2020 Reported: 02/01/2020 Physicians: Cassandra Heller Specimen(s) Received A: LEFT OVARIAN CYST B: LEFT FALLOPIAN TUBE C: RIGHT FALLOPIAN TUBE D: IUD Clinical History Voluntary sterilization Left ovarian cyst Removal IUD Final Diagnosis A. LEFT OVARIAN CYST, CYSTECTOMY: OVARIAN TISSUE WITH HEMORRHAGIC CORPUS LUTEUM CYST. B. LEFT FALLOPIAN TUBE, SALPINGECTOMY: PORTION OF FALLOPIAN TUBE WITH PARATUBAL CYST. COMPLETE CROSS SECTION OF THE FALLOPIAN TUBE LUMEN IDENTIFIED. C. RIGHT FALLOPIAN TUBE, SALPINGECTOMY: PORTION OF FALLOPIAN TUBE WITH PARATUBAL CYST. COMPLETE CROSS SECTION OF THE FALLOPIAN TUBE LUMEN IDENTIFIED. D. IUD, REMOVAL: CONSISTENT WITH IUD. GROSS ONLY. Electronically Signed Shaun Chapman M.D. Gross Description A. Received in formalin labeled "left ovarian cyst," is a 3.2 x 3.0 x 0.8 cm aggregate of davila whitmore fragments of soft tissue, consistent with a fragmented ovarian cyst. The larger portions are sectioned and the specimen is entirely submitted in 2 cassettes. B. Received in formalin labeled "left fallopian tube," is a 7 cm in length fimbriated fallopian tube. The outer surface is davila-whitmore and smooth. Sectioning reveals an unremarkable lumen. Engineer Fishing Vessel sections are submitted in 2 cassettes as follows: 1-fimbria; 2-cross sections of fallopian tube. C. Received in formalin labeled "right fallopian tube," is a 3.5 cm in length fimbriated fallopian tube. The outer surface is davila-whitmore and smooth. Sectioning reveals an unremarkable lumen. Engineer Fishing Vessel sections are submitted in 2 cassettes as follows: 1-fimbria; 2-cross sections of fallopian tube. D. Received fresh labeled "IUD," is a 3 cm in length T-shaped device with attached string, consistent with an IUD. No soft tissue is present. No sections are submitted, gross only. DL/01/30/2020 saudi/01/30/2020
== END 2020-01-29 18:45 | disposition home or self-care (01) ==
LOC: JASU-SURG 04:56
PROVIDERS: ATTEND Obstetrics & Gynecology
PROC: 0UB74ZZ Excision of Bilateral Fallopian Tubes, Percutaneous Endoscopic Approach (ICD-10-PCS; principal; 2020-01-29 14:00)
PROC: 0UPD7HZ Removal of Contraceptive Device from Uterus and Cervix, Via Natural or Artificial Opening (ICD-10-PCS; 2020-01-29 14:00)
PROC: 0UB14ZZ Excision of Left Ovary, Percutaneous Endoscopic Approach (ICD-10-PCS; 2020-01-29 14:00)
DX: Z30.2 Encounter for sterilization (principal); Z30.432 Encounter for removal of intrauterine contraceptive device; N83.202 Unspecified ovarian cyst, left side; D25.9 Leiomyoma of uterus, unspecified
CPT/HCPCS: 81025; 88300-TC; 88302-TC; 88304-TC; 94760